=== PATIENT | female | born 1950 | race Caucasian/White ===

== ENCOUNTER 2016-05-03 14:51 | Emergency (ER) | payer SELFPAY ==
[~2016-05-03 14:51] MED LIST: ADVAIR DISKU1 INH; ALBUTEROL HFA60 DOSE IN; ESTRACE1 MG PO; PREDNISONE20 MG PO; PRILOSEC20 MG; SINGULAIR10 MG PO; ZYRTEC ALLERGY10 MG
--- NOTE | 2016-05-03 16:06 | ED NURSING NOTES ---
Clinical Report - Nurses [facility] [address] [place] [address] 05/03/2016 14:51 Patient: LISA MEJIAS TRIAGE Triage time 14:45 May 03 2016. Acuity: LEVEL 4. Chief Complaint: SHORTNESS OF BREATH and WHEEZING. 15:00 05/03/16. SEPSIS SCREEN: Sepsis Screen. Negative (no infection suspected/documented). ALVIN COMA SCORE: [place] Coma Scale: 15- eyes open spontaneously (4); best verbal response- oriented x 4 (5); best motor response- obeys commands (6). --15:00 Jaja Ramsey R.N. 14:55 05/03/16. BP: 142/80 (regular adult cuff) taken on the right arm, while lying. HR: 105. RR: 26. O2 saturation: 92% on room air. Temp: 98.2 F (oral). Pain level now: 0/10. --15:00 Jaja Ramsey R.N. late entry - 14:55. --15:08 Jaja Ramsey R.N. late entry - 14:55. --15:10 Jaja Ramsey R.N. Weight: 86.6 kg stated. Height/Length: 66 inches Per Patient. BMI: 30.8. --15:09 Jaja Ramsey R.N. Medications Advair Diskus Inhalation. Albuterol Sulfate Inhalation. Estradiol Oral. Omeprazole Oral. Singulair Oral. ZyrTEC Allergy Oral. --14:56 Jaja Ramsey R.N. FLUoxetine HCl Oral. --15:04 Jaja Ramsey R.N. Nasacort AQ Nasal. --15:04 Jaja Ramsey R.N. Allergies No Known Drug Allergy. --14:56 Jaja Ramsey R.N. History Arrived by EMS. Historian: patient. Accompanied by family. Primary physician (Karly Peck). Onset. (5 days ago). She has had a cough and wheezing. No fever, chills, chest pain or back pain. 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 PAST MEDICAL HX: Asthma. Last normal menstrual period- Hysterectomy 1996. SOCIAL HX: Never smoker. Alcohol use; consumes two beers a day. No infectious disease exposure. --15:00 Jaja Ramsey R.N. ( Patient was at her PCPs today and was SOB with wheezing, started 5 times ago per patient, on the ambulance over she was given solumedrol 125mg and another nebulizer treatment. SPO2 was 90% on RA at [facility] office, cuff maker put patient on 8L NC and it stayed at around 94%, now patient in room on RA and is around 96%). --15:08 Jaja Ramsey R.N. PROBLEMS: Gastroesophageal Reflux. Asthma. --14:56 Jaja Ramsey R.N. ADDITIONAL SURGERIES: Cholecystectomy. Hysterectomy. --14:56 Jaja Ramsey R.N. Interventions ID band on patient. To treatment room. --15:00 Jaja Ramsey R.N. PHYSICAL ASSESSMENT 15:01 05/03/16. To room via stretcher. GENERAL / NEURO / PSYCH: Alert. Oriented X 4. HEENT: Mucous membranes are pink. RESPIRATORY: Mild respiratory distress. The patient can speak in full sentences. Wheezing present. CVS: Capillary refill less than 2 seconds. GI / : Abdomen soft and nontender. Bowel sounds within normal limits. SKIN: Skin is warm. --15:01 Jaja Ramsey R.N. NURSING PROGRESS NOTES 14:52 05/03/2016 Site #1 started prior to arrival by EMS via IV in the left antecubital space with an 20g angiocath, with aseptic technique and good blood return. --15:54 Jaja Ramsey R.N. 15:02 05/03/16. The plan of care for this patient has been created. Monitoring of patient in place. Head of bed elevated. Reassurance given. Two patient identifiers checked. Call light placed in reach. Side rails up x 2. Bed placed in lowest position. Brakes of bed on. Patient ready for evaluation- chart flagged and ED physician notified. --15:02 Jaja Ramsey R.N. 15:35 05/03/16. Reassessment after intervention. She is calm. Overall patient status is improved- she states feels better. RESPIRATORY: Wheezing present (Wheezing throughout still but sounding clearer). SKIN: Skin is warm. Skin color within normal limits. --15:35 Jaja Ramsey R.N. 15:30 05/03/16. BP: 134/73 (regular adult cuff) taken on the right arm, while lying. HR: 99. RR: 18 (regular). O2 saturation: 2% on room air. Pain level now: 0/10. --15:53 Jaja Ramsey R.N. 15:56 05/03/16. --15:56 Jaja Ramsey R.N. 15:55 05/03/16. BP: 130/64 (regular adult cuff) taken on the right arm, while lying. HR: 100. RR: 20. O2 saturation: 96% on nasal cannula at 2 liters/minute. Pain level now: 0/10. --15:56 Jaja Ramsey R.N. DISPOSITION / DISCHARGE 16:28 05/03/16. Condition at departure: improved. No learning barriers present. Discharge instructions provided and reviewed with the patient. Reviewed medication(s) side effects, precautions and dosing information. Reviewed nebulizer use instructions. Patient verbalized understanding. Written instructions provided in Slovenian. The patient was discharged by the physician. She was discharged home and accompanied by spouse. She left the Emergency Department ambulatory and via private vehicle. Spouse driving. --16:28 Jaja Ramsey R.N. 16:26 05/03/16. BP: 126/72 (regular adult cuff) taken on the right arm, while lying. HR: 96. RR: 20. O2 saturation: 97% on nasal cannula at 2 liters/minute. Temp: 98.4 F (oral). Pain level now: 0/10. --16:28 Jaja Ramsey R.N. 16:30 05/03/2016 Site #1 removed upon discharge. Bandaid applied. --16:35 Jaja Ramsey R.N. 16:32 05/03/16. Departure time: 16:32 May 03 2016. --16:32 Ramsey, Jaja, R.N. Locked/Released at 05/03/2016 16:35 by Jaja Ramsey R.N.
--- NOTE | 2016-05-03 16:06 | ED CLINICAL REPORT ---
Clinical Report - Physicians/Mid Levels [facility] [address] [place] [address] 05/03/2016 14:51 Patient: LISA MEJIAS Time Seen: 14:58. Arrived- By ambulance. Historian- patient and EMS personnel. HISTORY OF PRESENT ILLNESS Chief Complaint: DYSPNEA and WHEEZING. This started about 5 days ago and is still present and now worse. It was gradual in onset and has been constant and waxing/waning. The patient has had a cough. No sputum production, orthopnea or chest pain or discomfort. See nurses notes for current asthma threapy. Asthma triggers: animals, dust (mites) and smoke. Takes asthma medications. Similar symptoms previously: Many times. Recent medical care: The patient was seen recently at another facility in a clinic. Seen for similar symptoms. Diagnosis: asthma. ( she was sent here from her clinic because of her symptoms. She was treated en route with Solu-Medrol and DuoNeb treatment. She reports that she is feeling much better.). REVIEW OF SYSTEMS No chills, fever, sweats, chest pain or pedal edema. No palpitations, abdominal pain, black stools, bloody stools or constipation. No diarrhea, nausea, vomiting or urinary problems. The patient has had mild calf pain involving the right leg and left leg (chronically - intermittently). It has been similar to previous episodes. All systems otherwise negative, except as recorded above. PAST HISTORY Problems: Gastroesophageal Reflux. Asthma. Additional Surgeries: Cholecystectomy. Hysterectomy. Medications: Advair Diskus Inhalation. Albuterol Sulfate Inhalation. Estradiol Oral. Omeprazole Oral. Singulair Oral. ZyrTEC Allergy Oral. Allergies: No Known Drug Allergy. SOCIAL HISTORY Never smoker. Regular alcohol use; consumes two beers a day. FAMILY HISTORY Denies family medical history. ADDITIONAL NOTES The nursing notes have been reviewed. PHYSICAL EXAM Vital Signs: 05/03/2016 14:55 BP: 142/80. HR: 105. RR: 26. O2 saturation: 92%. Temp: 98.2 F. Pain level now: 0/10. Have been reviewed. Appearance: Alert. No acute distress. Eyes: Pupils equal, round and reactive to light. ENT: Nose normal. Pharynx normal. Uvula midline. Neck: Normal inspection. Neck supple. CVS: Tachycardia. Normal heart rate and rhythm. Respiratory: No respiratory distress. Decreased air movement. No wheezes. Abdomen: Soft and nontender. No organomegaly. Back: Normal inspection. Skin: Skin warm and dry. Normal skin color. Normal skin turgor. Extremities: Extremities exhibit normal ROM. No calf tenderness. No lower extremity edema. Neuro: No motor deficit. No sensory deficit. PROGRESS AND PROCEDURES Course of Care: Symptoms better. Vital signs have been reviewed. Physical exam findings are improved. Decreased breath sounds. No respiratory distress. No rales, accessory muscle use, chest retractions or wheezes. Normal heart rate and rhythm. Heart sounds normal. Abdomen soft and nontender. Skin warm and dry. Patient/family counseled. Old medical records reviewed. Disposition: Discharged. Condition: stable. CLINICAL IMPRESSION Asthma with an acute exacerbation. INSTRUCTIONS Avoid tobacco smoke. Warnings: Further evaluation is necessary. GENERAL WARNINGS: Return or contact your physician immediately if your condition worsens or changes unexpectedly, if not improving as expected, or if other problems arise. Specifically return if breathing difficulty. Your Current Medications: CONTINUE TAKING THE FOLLOWING MEDICATIONS: Advair Diskus Inhalation. Albuterol Sulfate Inhalation. Estradiol Oral. FLUoxetine HCl Oral. Nasacort AQ Nasal. Omeprazole Oral. Singulair Oral. ZyrTEC Allergy Oral. Prescription Medications: Prednisone 20 mg: take 3 orally every day for 5 days. Dispense fifteen (15). No refills. Understanding of the discharge instructions verbalized by patient. Follow-up with: Kvng Sanabria MD, [facility], , [address] [facility] [id number] Follow up in five days. Call for an appointment. (Electronically signed by Jamaal Anderson MD 05/03/2016 17:04)
--- NOTE | 2016-05-03 16:06 | ED CLINICAL REPORT ---
Clinical Report - Physicians/Mid Levels [facility] [address] [place] [address] 05/03/2016 14:51 Patient: LISA MEJIAS Time Seen: 14:58. Arrived- By ambulance. Historian- patient and EMS personnel. HISTORY OF PRESENT ILLNESS Chief Complaint: DYSPNEA and WHEEZING. This started about 5 days ago and is still present and now worse. It was gradual in onset and has been constant and waxing/waning. The patient has had a cough. No sputum production, orthopnea or chest pain or discomfort. See nurses notes for current asthma threapy. Asthma triggers: animals, dust (mites) and smoke. Takes asthma medications. Similar symptoms previously: Many times. Recent medical care: The patient was seen recently at another facility in a clinic. Seen for similar symptoms. Diagnosis: asthma. ( she was sent here from her clinic because of her symptoms. She was treated en route with Solu-Medrol and DuoNeb treatment. She reports that she is feeling much better.). REVIEW OF SYSTEMS No chills, fever, sweats, chest pain or pedal edema. No palpitations, abdominal pain, black stools, bloody stools or constipation. No diarrhea, nausea, vomiting or urinary problems. The patient has had mild calf pain involving the right leg and left leg (chronically - intermittently). It has been similar to previous episodes. All systems otherwise negative, except as recorded above. PAST HISTORY Problems: Gastroesophageal Reflux. Asthma. Additional Surgeries: Cholecystectomy. Hysterectomy. Medications: Advair Diskus Inhalation. Albuterol Sulfate Inhalation. Estradiol Oral. Omeprazole Oral. Singulair Oral. ZyrTEC Allergy Oral. Allergies: No Known Drug Allergy. SOCIAL HISTORY Never smoker. Regular alcohol use; consumes two beers a day. FAMILY HISTORY Denies family medical history. ADDITIONAL NOTES The nursing notes have been reviewed. PHYSICAL EXAM Vital Signs: 05/03/2016 14:55 BP: 142/80. HR: 105. RR: 26. O2 saturation: 92%. Temp: 98.2 F. Pain level now: 0/10. Have been reviewed. Appearance: Alert. No acute distress. Eyes: Pupils equal, round and reactive to light. ENT: Nose normal. Pharynx normal. Uvula midline. Neck: Normal inspection. Neck supple. CVS: Tachycardia. Normal heart rate and rhythm. Respiratory: No respiratory distress. Decreased air movement. No wheezes. Abdomen: Soft and nontender. No organomegaly. Back: Normal inspection. Skin: Skin warm and dry. Normal skin color. Normal skin turgor. Extremities: Extremities exhibit normal ROM. No calf tenderness. No lower extremity edema. Neuro: No motor deficit. No sensory deficit. PROGRESS AND PROCEDURES Course of Care: Symptoms better. Vital signs have been reviewed. Physical exam findings are improved. Decreased breath sounds. No respiratory distress. No rales, accessory muscle use, chest retractions or wheezes. Normal heart rate and rhythm. Heart sounds normal. Abdomen soft and nontender. Skin warm and dry. Patient/family counseled. Old medical records reviewed. Disposition: Discharged. Condition: stable. CLINICAL IMPRESSION Asthma with an acute exacerbation. INSTRUCTIONS Avoid tobacco smoke. Warnings: Further evaluation is necessary. GENERAL WARNINGS: Return or contact your physician immediately if your condition worsens or changes unexpectedly, if not improving as expected, or if other problems arise. Specifically return if breathing difficulty. Your Current Medications: CONTINUE TAKING THE FOLLOWING MEDICATIONS: Advair Diskus Inhalation. Albuterol Sulfate Inhalation. Estradiol Oral. FLUoxetine HCl Oral. Nasacort AQ Nasal. Omeprazole Oral. Singulair Oral. ZyrTEC Allergy Oral. Prescription Medications: Prednisone 20 mg: take 3 orally every day for 5 days. Dispense fifteen (15). No refills. Understanding of the discharge instructions verbalized by patient. Follow-up with: Kvng Sanabria MD, [facility], , [address] [facility] [address] Follow up in five days. Call for an appointment. (Electronically signed by Jamaal Anderson MD 05/03/2016 17:04)
--- NOTE | 2016-05-03 16:06 | ED NURSING NOTES ---
Clinical Report - Nurses [facility] [address] [place] [address] 05/03/2016 14:51 Patient: LISA MEJIAS TRIAGE Triage time 14:45 May 03 2016. Acuity: LEVEL 4. Chief Complaint: SHORTNESS OF BREATH and WHEEZING. 15:00 05/03/16. SEPSIS SCREEN: Sepsis Screen. Negative (no infection suspected/documented). ALVIN COMA SCORE: [place] Coma Scale: 15- eyes open spontaneously (4); best verbal response- oriented x 4 (5); best motor response- obeys commands (6). --15:00 Jaja Ramsey R.N. 14:55 05/03/16. BP: 142/80 (regular adult cuff) taken on the right arm, while lying. HR: 105. RR: 26. O2 saturation: 92% on room air. Temp: 98.2 F (oral). Pain level now: 0/10. --15:00 Jaja Ramsey R.N. late entry - 14:55. --15:08 Jaja Ramsey R.N. late entry - 14:55. --15:10 Jaja Ramsey R.N. Weight: 86.6 kg stated. Height/Length: 66 inches Per Patient. BMI: 30.8. --15:09 Jaja Ramsey R.N. Medications Advair Diskus Inhalation. Albuterol Sulfate Inhalation. Estradiol Oral. Omeprazole Oral. Singulair Oral. ZyrTEC Allergy Oral. --14:56 Jaja Ramsey R.N. FLUoxetine HCl Oral. --15:04 Jaja Ramsey R.N. Nasacort AQ Nasal. --15:04 Jaja Ramsey R.N. Allergies No Known Drug Allergy. --14:56 Jaja Ramsey R.N. History Arrived by EMS. Historian: patient. Accompanied by family. Primary physician (Karly Peck). Onset. (5 days ago). She has had a cough and wheezing. No fever, chills, chest pain or back pain. 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 PAST MEDICAL HX: Asthma. Last normal menstrual period- Hysterectomy 1996. SOCIAL HX: Never smoker. Alcohol use; consumes two beers a day. No infectious disease exposure. --15:00 Jaja Ramsey R.N. ( Patient was at her PCPs today and was SOB with wheezing, started 5 times ago per patient, on the ambulance over she was given solumedrol 125mg and another nebulizer treatment. SPO2 was 90% on RA at [facility] office, equipment inspector put patient on 8L NC and it stayed at around 94%, now patient in room on RA and is around 96%). --15:08 Jaja Ramsey R.N. PROBLEMS: Gastroesophageal Reflux. Asthma. --14:56 Jaja Ramsey R.N. ADDITIONAL SURGERIES: Cholecystectomy. Hysterectomy. --14:56 Jaja Ramsey R.N. Interventions ID band on patient. To treatment room. --15:00 Jaja Ramsey R.N. PHYSICAL ASSESSMENT 15:01 05/03/16. To room via stretcher. GENERAL / NEURO / PSYCH: Alert. Oriented X 4. HEENT: Mucous membranes are pink. RESPIRATORY: Mild respiratory distress. The patient can speak in full sentences. Wheezing present. CVS: Capillary refill less than 2 seconds. GI / : Abdomen soft and nontender. Bowel sounds within normal limits. SKIN: Skin is warm. --15:01 Jaja Ramsey R.N. NURSING PROGRESS NOTES 14:52 05/03/2016 Site #1 started prior to arrival by EMS via IV in the left antecubital space with an 20g angiocath, with aseptic technique and good blood return. --15:54 Jaja Ramsey R.N. 15:02 05/03/16. The plan of care for this patient has been created. Monitoring of patient in place. Head of bed elevated. Reassurance given. Two patient identifiers checked. Call light placed in reach. Side rails up x 2. Bed placed in lowest position. Brakes of bed on. Patient ready for evaluation- chart flagged and ED physician notified. --15:02 Jaja Ramsey R.N. 15:35 05/03/16. Reassessment after intervention. She is calm. Overall patient status is improved- she states feels better. RESPIRATORY: Wheezing present (Wheezing throughout still but sounding clearer). SKIN: Skin is warm. Skin color within normal limits. --15:35 Jaja Ramsey R.N. 15:30 05/03/16. BP: 134/73 (regular adult cuff) taken on the right arm, while lying. HR: 99. RR: 18 (regular). O2 saturation: 2% on room air. Pain level now: 0/10. --15:53 Jaja Ramsey R.N. 15:56 05/03/16. --15:56 Jaja Ramsey R.N. 15:55 05/03/16. BP: 130/64 (regular adult cuff) taken on the right arm, while lying. HR: 100. RR: 20. O2 saturation: 96% on nasal cannula at 2 liters/minute. Pain level now: 0/10. --15:56 Jaja Ramsey R.N. DISPOSITION / DISCHARGE 16:28 05/03/16. Condition at departure: improved. No learning barriers present. Discharge instructions provided and reviewed with the patient. Reviewed medication(s) side effects, precautions and dosing information. Reviewed nebulizer use instructions. Patient verbalized understanding. Written instructions provided in Ukrainian. The patient was discharged by the physician. She was discharged home and accompanied by spouse. She left the Emergency Department ambulatory and via private vehicle. Spouse driving. --16:28 Jaja Ramsey R.N. 16:26 05/03/16. BP: 126/72 (regular adult cuff) taken on the right arm, while lying. HR: 96. RR: 20. O2 saturation: 97% on nasal cannula at 2 liters/minute. Temp: 98.4 F (oral). Pain level now: 0/10. --16:28 Jaja Ramsey R.N. 16:30 05/03/2016 Site #1 removed upon discharge. Bandaid applied. --16:35 Jaja Ramsey R.N. 16:32 05/03/16. Departure time: 16:32 May 03 2016. --16:32 Ramsey, Jaja, R.N. Locked/Released at 05/03/2016 16:35 by Jaja Ramsey R.N.
--- NOTE | 2016-05-03 17:05 | ED MAR SUMMARY ---
..... Medication Administration Record [facility] [address] [place], [place] [id number] Patient: LISA MEJIAS Visit ID: [id number] 66y, F Weight: 86.6 kg Height/Length: 66 in BMI: 30.8 ALLERGIES: No Known Drug Allergy
--- NOTE | 2016-05-03 17:05 | ED DISCHARGE INSTRUCTIONS ---
Patient: LISA MEJIAS General Instructions [facility] VisitID: [id number] [place], [place] [id number] 66y, F Registration Date/Time: 05/03/2016 Asthma with an acute exacerbation. INSTRUCTIONS Avoid tobacco smoke. Warnings: Further evaluation is necessary. GENERAL WARNINGS: Return or contact your physician immediately if your condition worsens or changes unexpectedly, if not improving as expected, or if other problems arise. Specifically return if breathing difficulty. Your Current Medications: CONTINUE TAKING THE FOLLOWING MEDICATIONS: Advair Diskus Inhalation. Albuterol Sulfate Inhalation. Estradiol Oral. FLUoxetine HCl Oral. Nasacort AQ Nasal. Omeprazole Oral. Singulair Oral. ZyrTEC Allergy Oral. Prescription Medications: Prednisone 20 mg: take 3 orally every day for 5 days. Dispense fifteen (15). No refills. Understanding of the discharge instructions verbalized by patient. Follow-up with: Kvng Sanabria MD, [facility], , [address] [place] [address] Follow up in five days. Call for an appointment. ADDITIONAL INFORMATION Asthma [Adult] Asthma is a disease where the small air passages within the lung go into spasm and restrict the flow of air. Inflammation and swelling of the airways cause further restriction. During an acute asthma attack, these factors cause difficulty breathing, wheezing, cough and chest tightness. An asthma attack can be triggered by many things. Common triggers include the common cold, bronchitis, pneumonia, irritants such as smoke or pullutants in the air, emotional upset and heavy exercise. Inmany adults with asthma, allergies todust, mold, pollen and animal dander can cause an asthma attack. Skipping doses of daily asthma medicine can also bring on an asthma attack. Asthma can be controlled with proper medicines and decreased exposure to known allergens. Home Care: Take prescribed medicine exactly at the times advised. If you have a hand-held inhaler or aerosol breathing medicine, do not use it more than once every four hours, unless told to do so. (If you need this medicine more than every four hours, you may need to return to the Emergency Room.) If prescribed an antibiotic or prednisone, take all of the medicine even if you are feeling better after a few days. Do not smoke. Avoid being exposed to the smoke of others. Some persons with asthma have worsening of their symptoms when they take aspirin and non-steroidal medicines like ibuprofen (Motrin, Advil) and naproxen (Aleve, Naprosyn). Talk to your doctor if you think this may apply to you. Acetaminophen (Tylenol)should be safe to use. Follow Up with your doctor, or as advised by our staff. Always bring all of your current medicines with you for your doctor to see. If you do not already have one, talk to your doctor about developing a personalized "Asthma Action Plan." [NOTE: A pneumococcal vaccine and yearly flu shot (every fall) are recommended. Ask your doctor about this.] Get Prompt Medical Attention if any of the following occur: Increased wheezing or shortness of breath Need to use your inhalers more often than usual without relief Fever of 100.4F (38C) or higher, or as directed by your healthcare provider Coughing up lots of dark-colored or bloody sputum (mucus) Chest pain with each breath You do not start to improve within 24 hours Call 911 If Any Of The Following Occur : Trouble walking or talking because of shortness of breath If you use a peak flow meter andyou are still in the red zone (less than 50 percent) 15 minutes after using inhaler medication Lips or fingernails turning sanches or blue Prednisone Oral tablet What is this medicine? PREDNISONE (PRED ni sone) is a corticosteroid. It is commonly used to treat inflammation of the skin, joints, lungs, and other organs. Common conditions treated include asthma, allergies, and arthritis. It is also used for other conditions, such as blood disorders and diseases of the adrenal glands. How should I use this medicine? Take this medicine by mouth with a glass of water. Follow the directions on the prescription label. Take this medicine with food. If you are taking this medicine once a day, take it in the morning. Do not take more medicine than you are told to take. Do not suddenly stop taking your medicine because you may develop a severe reaction. Your doctor will tell you how much medicine to take. If your doctor wants you to stop the medicine, the dose may be slowly lowered over time to avoid any side effects. Talk to your investigations chief regarding the use of this medicine in children. Special care may be needed. What side effects may I notice from receiving this medicine? Side effects that you should report to your doctor or health assistant child care teacher as soon as possible: allergic reactions like skin rash, itching or hives, swelling of the face, lips, or tongue changes in emotions or moods changes in vision depressed mood eye pain fever or chills, cough, sore throat, pain or difficulty passing urine increased thirst swelling of ankles, feet Side effects that usually do not require medical attention (report to your doctor or health assistant child care teacher if they continue or are bothersome): confusion, excitement, restlessness headache nausea, vomiting skin problems, acne, thin and shiny skin trouble sleeping weight gain What may interact with this medicine? Do not take this medicine with any of the following medications: metyrapone mifepristone This medicine may also interact with the following medications: aminoglutethimide amphotericin B aspirin and aspirin-like medicines barbiturates certain medicines for diabetes, like glipizide or glyburide cholestyramine cholinesterase inhibitors cyclosporine digoxin diuretics ephedrine female hormones, like estrogens and control pills isoniazid ketoconazole NSAIDS, medicines for pain and inflammation, like ibuprofen or naproxen phenytoin rifampin toxoids vaccines warfarin What if I miss a dose? If you miss a dose, take it as soon as you can. If it is almost time for your next dose, talk to your doctor or health assistant child care teacher. You may need to miss a dose or take an extra dose. Do not take double or extra doses without advice. Where should I keep my medicine? Keep out of the reach of children. Store at room temperature between 15 and 30 degrees C (59 and 86 degrees F). Protect from light. Keep container tightly closed. Throw away any unused medicine after the expiration date. What should I tell my health care provider before I take this medicine? They need to know if you have any of these conditions: [place]'s syndrome diabetes glaucoma heart disease high blood pressure infection (especially a virus infection such as chickenpox, cold sores, or herpes) kidney disease liver disease mental illness myasthenia gravis osteoporosis seizures stomach or intestine problems thyroid disease an unusual or allergic reaction to lactose, prednisone, other medicines, foods, dyes, or preservatives or trying to get breast-feeding What should I watch for while using this medicine? Visit your doctor or health assistant child care teacher for regular checks on your progress. If you are taking this medicine over a prolonged period, carry an identification card with your name and address, the type and dose of your medicine, and your doctor's name and address. This medicine may increase your risk of getting an infection. Tell your doctor or health assistant child care teacher if you are around anyone with measles or chickenpox, or if you develop sores or blisters that do not heal properly. If you are going to have surgery, tell your doctor or health assistant child care teacher that you have taken this medicine within the last twelve months. Ask your doctor or health assistant child care teacher about your diet. You may need to lower the amount of salt you eat. This medicine may affect blood sugar levels. If you have diabetes, check with your doctor or health assistant child care teacher before you change your diet or the dose of your diabetic medicine. You have been given the following additional information: Asthma, Acute (Adult) Prednisone Oral tablet (Electronically signed by Jamaal Anderson MD 05/03/2016 17:04)
--- NOTE | 2016-05-03 17:05 | ED DISCHARGE INSTRUCTIONS ---
Patient: LISA MEJIAS General Instructions [facility] VisitID: [id number] [place], [place] [id number] 66y, F Registration Date/Time: 05/03/2016 Asthma with an acute exacerbation. INSTRUCTIONS Avoid tobacco smoke. Warnings: Further evaluation is necessary. GENERAL WARNINGS: Return or contact your physician immediately if your condition worsens or changes unexpectedly, if not improving as expected, or if other problems arise. Specifically return if breathing difficulty. Your Current Medications: CONTINUE TAKING THE FOLLOWING MEDICATIONS: Advair Diskus Inhalation. Albuterol Sulfate Inhalation. Estradiol Oral. FLUoxetine HCl Oral. Nasacort AQ Nasal. Omeprazole Oral. Singulair Oral. ZyrTEC Allergy Oral. Prescription Medications: Prednisone 20 mg: take 3 orally every day for 5 days. Dispense fifteen (15). No refills. Understanding of the discharge instructions verbalized by patient. Follow-up with: Kvng Sanabria MD, [facility], , [address] [place] [address] Follow up in five days. Call for an appointment. ADDITIONAL INFORMATION Asthma [Adult] Asthma is a disease where the small air passages within the lung go into spasm and restrict the flow of air. Inflammation and swelling of the airways cause further restriction. During an acute asthma attack, these factors cause difficulty breathing, wheezing, cough and chest tightness. An asthma attack can be triggered by many things. Common triggers include the common cold, bronchitis, pneumonia, irritants such as smoke or pullutants in the air, emotional upset and heavy exercise. Inmany adults with asthma, allergies todust, mold, pollen and animal dander can cause an asthma attack. Skipping doses of daily asthma medicine can also bring on an asthma attack. Asthma can be controlled with proper medicines and decreased exposure to known allergens. Home Care: Take prescribed medicine exactly at the times advised. If you have a hand-held inhaler or aerosol breathing medicine, do not use it more than once every four hours, unless told to do so. (If you need this medicine more than every four hours, you may need to return to the Emergency Room.) If prescribed an antibiotic or prednisone, take all of the medicine even if you are feeling better after a few days. Do not smoke. Avoid being exposed to the smoke of others. Some persons with asthma have worsening of their symptoms when they take aspirin and non-steroidal medicines like ibuprofen (Motrin, Advil) and naproxen (Aleve, Naprosyn). Talk to your doctor if you think this may apply to you. Acetaminophen (Tylenol)should be safe to use. Follow Up with your doctor, or as advised by our staff. Always bring all of your current medicines with you for your doctor to see. If you do not already have one, talk to your doctor about developing a personalized "Asthma Action Plan." [NOTE: A pneumococcal vaccine and yearly flu shot (every fall) are recommended. Ask your doctor about this.] Get Prompt Medical Attention if any of the following occur: Increased wheezing or shortness of breath Need to use your inhalers more often than usual without relief Fever of 100.4F (38C) or higher, or as directed by your healthcare provider Coughing up lots of dark-colored or bloody sputum (mucus) Chest pain with each breath You do not start to improve within 24 hours Call 911 If Any Of The Following Occur : Trouble walking or talking because of shortness of breath If you use a peak flow meter andyou are still in the red zone (less than 50 percent) 15 minutes after using inhaler medication Lips or fingernails turning sanches or blue Prednisone Oral tablet What is this medicine? PREDNISONE (PRED ni sone) is a corticosteroid. It is commonly used to treat inflammation of the skin, joints, lungs, and other organs. Common conditions treated include asthma, allergies, and arthritis. It is also used for other conditions, such as blood disorders and diseases of the adrenal glands. How should I use this medicine? Take this medicine by mouth with a glass of water. Follow the directions on the prescription label. Take this medicine with food. If you are taking this medicine once a day, take it in the morning. Do not take more medicine than you are told to take. Do not suddenly stop taking your medicine because you may develop a severe reaction. Your doctor will tell you how much medicine to take. If your doctor wants you to stop the medicine, the dose may be slowly lowered over time to avoid any side effects. Talk to your news cameraman regarding the use of this medicine in children. Special care may be needed. What side effects may I notice from receiving this medicine? Side effects that you should report to your doctor or health home care attendant as soon as possible: allergic reactions like skin rash, itching or hives, swelling of the face, lips, or tongue changes in emotions or moods changes in vision depressed mood eye pain fever or chills, cough, sore throat, pain or difficulty passing urine increased thirst swelling of ankles, feet Side effects that usually do not require medical attention (report to your doctor or health home care attendant if they continue or are bothersome): confusion, excitement, restlessness headache nausea, vomiting skin problems, acne, thin and shiny skin trouble sleeping weight gain What may interact with this medicine? Do not take this medicine with any of the following medications: metyrapone mifepristone This medicine may also interact with the following medications: aminoglutethimide amphotericin B aspirin and aspirin-like medicines barbiturates certain medicines for diabetes, like glipizide or glyburide cholestyramine cholinesterase inhibitors cyclosporine digoxin diuretics ephedrine female hormones, like estrogens and control pills isoniazid ketoconazole NSAIDS, medicines for pain and inflammation, like ibuprofen or naproxen phenytoin rifampin toxoids vaccines warfarin What if I miss a dose? If you miss a dose, take it as soon as you can. If it is almost time for your next dose, talk to your doctor or health home care attendant. You may need to miss a dose or take an extra dose. Do not take double or extra doses without advice. Where should I keep my medicine? Keep out of the reach of children. Store at room temperature between 15 and 30 degrees C (59 and 86 degrees F). Protect from light. Keep container tightly closed. Throw away any unused medicine after the expiration date. What should I tell my health care provider before I take this medicine? They need to know if you have any of these conditions: [place]'s syndrome diabetes glaucoma heart disease high blood pressure infection (especially a virus infection such as chickenpox, cold sores, or herpes) kidney disease liver disease mental illness myasthenia gravis osteoporosis seizures stomach or intestine problems thyroid disease an unusual or allergic reaction to lactose, prednisone, other medicines, foods, dyes, or preservatives or trying to get breast-feeding What should I watch for while using this medicine? Visit your doctor or health home care attendant for regular checks on your progress. If you are taking this medicine over a prolonged period, carry an identification card with your name and address, the type and dose of your medicine, and your doctor's name and address. This medicine may increase your risk of getting an infection. Tell your doctor or health home care attendant if you are around anyone with measles or chickenpox, or if you develop sores or blisters that do not heal properly. If you are going to have surgery, tell your doctor or health home care attendant that you have taken this medicine within the last twelve months. Ask your doctor or health home care attendant about your diet. You may need to lower the amount of salt you eat. This medicine may affect blood sugar levels. If you have diabetes, check with your doctor or health home care attendant before you change your diet or the dose of your diabetic medicine. You have been given the following additional information: Asthma, Acute (Adult) Prednisone Oral tablet (Electronically signed by Jamaal Anderson MD 05/03/2016 17:04)
--- NOTE | 2016-05-03 17:05 | ED MED RECONCILIATION SUMMARY ---
Patient: LISA MEJIAS Medication Reconciliation Report [facility] VisitID: [id number] [address] [place] [address] 66y, F Registration Date/Time: 05/03/2016 Weight: 86.6 kg Height/Length: 66 in. BMI: 30.8 ALLERGIES: No Known Drug Allergy The patient's Home Medications are listed below: CONTINUE TAKING THE FOLLOWING MEDICATIONS: Advair Diskus Inhalation Albuterol Sulfate Inhalation Estradiol Oral FLUoxetine HCl Oral Nasacort AQ Nasal Omeprazole Oral Singulair Oral ZyrTEC Allergy Oral The source(s) of the original Home Medication information: Not obtained. The following Medications were given to the patient in the Emergency Department: None. The following Medications were prescribed to the patient: Prednisone 20 mg: take 3 orally every day for 5 days. Dispense fifteen (15). No refills. -- Jamaal Anderson MD
--- NOTE | 2016-05-03 17:05 | ED MAR SUMMARY ---
..... Medication Administration Record [facility] [address] [place], [place] [id number] Patient: LISA MEJIAS Visit ID: [id number] 66y, F Weight: 86.6 kg Height/Length: 66 in BMI: 30.8 ALLERGIES: No Known Drug Allergy
--- NOTE | 2016-05-03 17:05 | ED MED RECONCILIATION SUMMARY ---
Patient: LISA MEJIAS Medication Reconciliation Report [facility] VisitID: [id number] [address] [place] [address] 66y, F Registration Date/Time: 05/03/2016 Weight: 86.6 kg Height/Length: 66 in. BMI: 30.8 ALLERGIES: No Known Drug Allergy The patient's Home Medications are listed below: CONTINUE TAKING THE FOLLOWING MEDICATIONS: Advair Diskus Inhalation Albuterol Sulfate Inhalation Estradiol Oral FLUoxetine HCl Oral Nasacort AQ Nasal Omeprazole Oral Singulair Oral ZyrTEC Allergy Oral The source(s) of the original Home Medication information: Not obtained. The following Medications were given to the patient in the Emergency Department: None. The following Medications were prescribed to the patient: Prednisone 20 mg: take 3 orally every day for 5 days. Dispense fifteen (15). No refills. -- Jamaal Anderson MD
== END 2016-05-03 16:32 | disposition home or self-care (01) ==
LOC: ED SRH 14:51
DX: J45.901 Unspecified asthma with (acute) exacerbation (principal); K21.9 Gastro-esophageal reflux disease without esophagitis